=== PATIENT | female | born 1970 | race Caucasian/White ===

== ENCOUNTER 2016-11-30 19:46 | Emergency (ER) | payer MEDICAID, OTHER ==
[2016-11-30] MEDS ORDERED: ACETAMINOPHEN 325 MG TABLET PO STA (20:48)
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
[2016-11-30] MEDS ORDERED: ACETAMINOPHEN 325 MG TABLET PO ONE (20:52)
--- NOTE | 2016-11-30 21:43 | XRAY Preliminary Report ---
Exam: XR Finger(s) LT IMPRESSION: No acute disease. [facility] SITE ID: [id number]
--- NOTE | 2016-11-30 21:45 | XRAY Report ---
EXAM: LEFT FIRST DIGIT RADIOGRAPHY EXAM DATE: 11/30/2016 09:01 PM. CLINICAL HISTORY: L thumb pain. No known injury. H/o ORIF. COMPARISON: None. TECHNIQUE: 3 views. FINDINGS: Bones: Orthopedic screw in the base of the first proximal phalanx. No acute fracture or other bone le amy. Joints: Normal. No subluxations. Soft Tissues: Unremarkable. IMPRESSION: No acute disease. [facility] Referring Provider Line: [phone] SITE ID: [id number]
[2016-11-30] MEDS ORDERED: DEXAMETHASONE 10 MG/ML VIAL PO STA (22:00)
[2016-11-30] MEDS ORDERED: CHERRY SYRUP 10 ML UDC PO ONE (22:05)
[2016-11-30] MEDS ORDERED: DEXAMETHASONE 10 MG/ML VIAL ONE (22:05)
[2016-11-30 22:20] VITALS: BP 120/79
== END 2016-11-30 22:20 | disposition home or self-care (01) ==
LOC: ED 19:46
DX: M79.645 Pain in left finger(s) (principal); Z87.11 Personal history of peptic ulcer disease; F17.200 Nicotine dependence, unspecified, uncomplicated
CPT/HCPCS: 73140; 99283; A9270

== ENCOUNTER 2017-01-03 07:28 | Outpatient (CLI) | payer MEDICAID ==
[2017-01-03 08:00] LABS: BASOPHILS # (AUTO) 0.1 10^3/uL (0.0-0.1); BASOPHILS % (AUTO) 0.7 %; EOSINOPHILS # (AUTO) 0.3 10^3/uL (0.0-0.7); EOSINOPHILS % (AUTO) 4.3 %; HCT - HEMATOCRIT 26.8 % (37.0-47.0); IMMATURE RETIC FRACTION 0.56; LYMPHOCYTES # (AUTO) 1.1 10^3/uL (1.5-3.5); LYMPHOCYTES % (AUTO) 13.9 %; MEAN CORPUSCULAR HEMOGLOBIN 17.5 pg (27.0-31.0); MEAN CORPUSCULAR HGB CONC 29.7 g/dL (32.0-36.0); MEAN CORPUSCULAR VOLUME 58.7 fL (81.0-99.0); MEAN PLATELET VOLUME 6.8 fL (7.9-10.8); MONOCYTES # (AUTO) 0.6 10^3/uL (0.0-1.0); MONOCYTES % (AUTO) 8.4 %; NEUTROPHILS # (AUTO) 5.6 10^3/uL (1.5-6.6); NEUTROPHILS % (AUTO) 72.7 %; RED BLOOD COUNT 4.57 10^6/uL (4.20-5.40); RED CELL DISTRIBUTION WIDTH 19.3 % (12.0-15.0); UNCORRECTED WHITE BLOOD COUNT 7.7 x10^3/uL; WHITE BLOOD COUNT 7.7 x10^3/uL (4.8-10.8)
[2017-01-03 08:36] LABS: FERRITIN 2.9 ng/mL (11.0-306.8)
[2017-01-03 08:37] LABS: BILIRUBIN,TOTAL 0.7 mg/dL (0.2-1.0); BUN - BLOOD UREA NITROGEN 14 mg/dL (6-20); CALCIUM 9.2 mg/dL (8.5-10.3); CARBON DIOXIDE - CO2 25 mmol/L (21-32); CHLORIDE 103 mmol/L (101-111); CHOL/HDL RATIO 2.3 (<4.4); CHOLESTEROL 205 mg/dL; CREATININE 0.8 mg/dL (0.4-1.0); GFR - MDRD 78 (>89); GLUCOSE 96 mg/dL (70-100); HDL CHOLESTEROL 91 mg/dL; IRON 11 ug/dL (28-170); LDL/HDL RATIO 1.1 (<4.4); POTASSIUM 3.6 mmol/L (3.5-5.0); SODIUM 137 mmol/L (135-145); TOTAL IRON BINDING CAPACITY 606 ug/dL (250-450); TOTAL PROTEIN 7.7 g/dL (6.7-8.2); TRANSFERRIN 433 mg/dL (192-382); TRIGLYCERIDES 85 mg/dL; VLDL CHOLESTEROL 17 mg/dL
[2017-01-03 08:47] LABS: THYROID STIMULATING HORMONE 1.48 uIU/mL (0.34-5.60)
== END 2017-01-03 07:29 | disposition home or self-care (01) ==
LOC: LAB 07:28
PROVIDERS: ATTEND Family Medicine
DX: D64.9 Anemia, unspecified (principal); Z98.84 Bariatric surgery status; Z51.81 Encounter for therapeutic drug level monitoring; Z79.899 Other long term (current) drug therapy; Z11.3 Encounter for screening for infections with a predominantly sexual mode of transmission
CPT/HCPCS: 36415; 80053; 80061; 82607; 82728; 82746; 83540; 84443; 84466; 85025; 85044; 86803

== ENCOUNTER 2017-04-05 07:10 | Emergency (ER) | payer MEDICAID ==
[2017-04-05] MEDS ORDERED: LIDOCAINE PATCH 5% TOP STA (07:48)
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
[2017-04-05] MEDS ORDERED: LIDOCAINE PATCH 5% TOP ONE (08:04)
--- NOTE | 2017-04-05 08:48 | XRAY Preliminary Report ---
Exam: XR RIBS W/PA CHEST RT IMPRESSION: 1. Irregular lucency involving the anterior medial right eighth and ninth ribs suggesting nondisplace d fractures. 2. No pneumothorax. No pleural effusions. [facility] SITE ID: [id number]
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
--- NOTE | 2017-04-05 09:48 | Ultrasound Report ---
RIGHT UPPER QUADRANT ULTRASOUND: 04/05/2017 CLINICAL INDICATION: Pain status post blunt trauma. TECHNIQUE: Real-time scanning was performed with medical collections representative static images obtained. FINDINGS: The liver measures 17.4 cm. Hepatic echotexture is normal. No intrahepatic biliary dilat ation or focal parenchymal lesion is present. The patient is status post cholecystectomy. The commo n bile duct measures 7 mm. The right kidney measures 11 cm, and demonstrates no hydronephrosis. No free fluid is seen in the four quadrants. IMPRESSION: CHANGES OF CHOLECYSTECTOMY. OTHERWISE, NORMAL RIGHT UPPER QUADRANT ULTRASOUND. NO FREE FLUID. JOB #: [id number] EXT JOB #:[id number]
[2017-04-05 09:59] VITALS: BP 131/71
== END 2017-04-05 10:30 | disposition home or self-care (01) ==
LOC: ED 07:10
DX: S22.41XA Multiple fractures of ribs, right side, initial encounter for closed fracture (principal); F17.200 Nicotine dependence, unspecified, uncomplicated; X58.XXXA Exposure to other specified factors, initial encounter
CPT/HCPCS: 71101; 76705; 99283; A9270

== ENCOUNTER 2017-09-16 08:00 | Outpatient (CLI) | payer MEDICAID ==
[2017-09-16 17:33] LABS: BILIRUBIN,URINE NEGATIVE (NEGATIVE); GLUCOSE, URINE (UA) NEGATIVE (NEGATIVE); KETONES,URINE (UA) NEGATIVE (NEGATIVE); LEUKOCYTE ESTERASE, URINE SMALL (NEGATIVE); NITRITE,URINE NEGATIVE (NEGATIVE); OCCULT BLOOD,URINE NEGATIVE (NEGATIVE); PROTEIN,URINE NEGATIVE (NEGATIVE); UROBILINOGEN,URINE 0.2 (NORMAL) E.U./dL (NORMAL)
[2017-09-16 17:35] LABS: CLARITY,URINE CLOUDY (CLEAR)
[2017-09-16 18:48] LABS: BACTERIA,URINE Many /HPF (None Seen); RBC,URINE None Seen /HPF (0-5); SQUAMOUS EPITHELIAL CELL,UR FEW Squamous (<= Few)
== END 2017-09-16 08:01 | disposition home or self-care (01) ==
LOC: LAB.S 08:00
PROVIDERS: ATTEND Nurse Practitioner Family
DX: N30.00 Acute cystitis without hematuria (principal)
CPT/HCPCS: 81001; 87086; 87181